=== PATIENT | male | born 1965 | race Caucasian/White ===

== ENCOUNTER 2016-10-14 18:51 | Emergency (ER) | payer OTHER ==
[2016-10-14 18:52] VITALS: BMI 29.9
[2016-10-14 19:03] VITALS: BP 152/87; PULSE 97; RESP 16; TEMP 98.7; O2SAT 97
--- NOTE | 2016-10-14 19:50 | ED PDOC ---
HPI: General Adult Time Seen by Provider: 10/14/16 19:26 Chief Complaint (Nursing): Male Genitourinary Chief Complaint (Provider): Hemorrhoid History Per: Patient History/Exam Limitations: no limitations Additional Complaint(s): Prasad Meredith is a 51 y/o male presenting to the ER on 10/14/2016 with complaints of a hemorrhoid. Patient reports he saw his primary doctor today and was given a steroid cream, but was not satisfied since the doctor failed to examine the hemorrhoid. Patient's noticed that her was feeling worse today, prompting them to ambulate to the ER for medical evaluation. Denies fever or chills. Admits to having a similar experience 5-6 years ago. Patient was given an oral medication which he is unsure if it is an antibiotic. Past Medical History Reviewed: Historical Data, Nursing Documentation, Vital Signs Vital Signs: Last Vital Signs Temp 98.7 F 10/14/16 19:00 Pulse 97 H 10/14/16 19:00 Resp 16 10/14/16 19:00 BP 152/87 H 10/14/16 19:00 Pulse Ox 97 10/14/16 20:19 - Medical History PMH: Diabetes, HTN, Hypercholesterolemia Denies: HIV, Chronic Kidney Disease - Surgical History Surgical History: No Surg Hx - Family History Family History: States: Unknown Family Hx - Social History Current smoker - smoking cessation education provided: No Alcohol: None Drugs: Denies - Home Medications Home Medications: Ambulatory Orders Medication Instructions Recorded Carvedilol [Coreg] 12.5 mg PO Q12H 11/03/14 Fenofibrate [Tricor] 134 mg PO DAILY 11/03/14 Lisinopril 20 mg PO DAILY 11/03/14 Metformin Hydrochloride [Metformin] 500 mg PO BID 11/03/14 amLODIPine [Norvasc] 10 mg PO DAILY 11/03/14 Cephalexin [cephalexin] 500 mg PO BID #20 cap 05/05/16 Polymyxin/Trimethoprim Sulfate 1 drop XX Q6H 10 Days 05/05/16 [Polytrim Ophth Soln] Ciprofloxacin [Cipro] 500 mg PO BID #14 tab 10/14/16 Docusate [Colace] 100 mg PO Q12H PRN #10 cap 10/14/16 Hydrocortisone 2.5% (Rectal) 30 applic [place] BID #1 tube 10/14/16 [Anusol-HC] - Allergies Allergies/Adverse Reactions: Allergies Allergy/AdvReac Type Severity Reaction Status Date / Time No Known Allergies Allergy Verified 05/05/16 11:33 Review of Systems ROS Statement: Except As Marked, All Systems Reviewed And Found Negative Constitutional: Negative for: Fever, Chills Genitourinary Male: Positive for: Other ((+) hemorrhoid ) Physical Exam - Reviewed Nursing Documentation Reviewed: Yes Vital Signs Reviewed: Yes - Physical Exam Appears: Positive for: Non-toxic, No Acute Distress Head Exam: Positive for: ATRAUMATIC, NORMOCEPHALIC Skin: Positive for: Normal Color. Negative for: Rash Rectal: Positive for: Normal Exam, Hemorrhoids (1 soft pink external hemorrhoid ) Neurologic/Psych: Positive for: Alert, Oriented. Negative for: Motor/Sensory Deficits - ECG O2 Sat by Pulse Oximetry: 97 Medical Decision Making Medical Decision Makin:26 Initial Impression- Hemorrhoid Pt will be discharged routinely with rx for Colace, Cipro, and Hydrocortisone. Pt was counseled on the need for follow-up with the referred specialist. Advised to return if symptoms persist or worsen. Condition is stable for discharge. Clinical Impression- Acute Hemorrhoid Documented by Kaci Giordano, acting as a scribe for Margaret Hawley PA-C All medical record entries made by the Scribe were at my direction and personally dictated by me. I have reviewed the chart and agree that the record accurately reflects my personal performance of the history, physical exam, medical decision making, and the department course for this patient. I have also personally directed, reviewed, and agree with the discharge instructions and disposition. Disposition - Clinical Impression Clinical Impression: Acute hemorrhoid - Patient ED Disposition Is Patient to be Admitted: No Counseled Patient/Family Regarding: Diagnosis, Need For Followup, Rx Given - Disposition Referrals: [facility] [place] [Outside] [facility] [Outside] Disposition: Routine/Home Disposition Time: 19:48 Condition: GOOD Prescriptions: Ciprofloxacin [Cipro] 500 mg PO BID #14 tab Docusate [Colace] 100 mg PO Q12H PRN #10 cap PRN Reason: Constipation Hydrocortisone 2.5% (Rectal) [Anusol-HC] 30 applic [place] BID #1 tube Instructions: Hemorrhoids (ED) Forms: Bee Ware (Korean)
== END 2016-10-14 20:11 | disposition home or self-care (01) ==
LOC: H.ER 18:51
DX: K64.4 Residual hemorrhoidal skin tags (principal); I10 Essential (primary) hypertension; E11.9 Type 2 diabetes mellitus without complications; E78.00 Pure hypercholesterolemia, unspecified